=== PATIENT | female | born 2005 | race Two or more races ===

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

== ENCOUNTER 2024-01-28 19:27 | Emergency (ER) | payer MEDICAID ==
[~2024-01-28] VITALS: Ht 162.6 cm; Wt 57.0 kg
[~2024-01-28 19:27] MED LIST: ALBUAER3 IN; AMOX500C2 PO; BENZ200C64 PO; BENZLOZ2 MT; IBUP1TAB5 PO; PRED20TA2 PO
[2024-01-28 20:18] LABS: Urine Bacteria None Seen /hpf (None Seen)
[2024-01-28 20:58] LABS: Basophils # (auto) 0 10 ^3/uL (0-0.2); Basophils % (auto) 0.4 % (0.0-2.0); Eosinophils # (auto) 0.1 10 ^3/uL (0-0.8); Eosinophils % (auto) 0.9 % (0.0-7.0); Hemoglobin 14.8 g/dL (12.2-16.2); Lymphocytes # (auto) 3.3 10 ^3/uL (0.4-5.4); Lymphocytes % (auto) 34.7 % (10.0-50.0); Mean Corpuscular Hemoglobin 31.6 pg (28.0-32.0); Mean Corpuscular Hgb Conc. 35.2 g/dL (32.0-36.0); Mean Corpuscular Volume 89.6 fL (80.0-100.0); Monocytes # (auto) 0.9 10 ^3/uL (0-1.3); Monocytes % (auto) 9.5 % (0.0-12.0); Neutrophils # (auto) 5.1 10 ^3/uL (1.6-8.6); Neutrophils % (auto) 54.5 % (37.0-80.0); Nucleated Red Blood Cells % 0.1 %; Red Blood Cells 4.69 10^6/uL (4.0-5.20); Red Cell Distribution Width 14.5 % (11.8-14.3); White Blood Cell 9.4 10^3/uL (4.4-10.8)
[2024-01-28] MEDS: ACETAMINOPHEN 500 MG TAB PO ONE (21:04)
[2024-01-28 21:05] VITALS: BP 123/68; PULSE 62; RESP 18; TEMP 97.8; O2SAT 97
[2024-01-28 21:08] LABS: Chloride 106 mmol/L (98-107); Potassium 4.1 mmol/L (3.5-5.1); Sodium 137 mmol/L (136-145)
[2024-01-28 21:09] LABS: Anion Gap 6 (5-15); Calcium 9.8 mg/dL (8.7-10.4); Carbon Dioxide 25 mmol/L (20-30)
[2024-01-28 21:14] LABS: BUN/Creatinine Ratio 9.3 (10.0-20.0); Blood Urea Nitrogen 7 mg/dL (9-23); Glucose 92 mg/dL (74-106)
[2024-01-28 21:14] LABS: Urine Blood Negative /uL (Negative); Urine Clarity Clear (Clear); Urine Color Yellow (Yellow); Urine Mucus FEW (None Seen); Urine Protein, UAD TRACE (Negative); Urine Specific Gravity 1.028 (1.001-1.035); Urine Urobilinogen 2 mg/dL (Negative); Urine WBC 45 /hpf (0 - 5)
[2024-01-28] MEDS ORDERED: ZOFR4T PO (22:48)
[2024-01-28] MEDS ORDERED: ACET500T58 PO (22:48)
[2024-01-28] MEDS ORDERED: NITR-87 PO (22:48)
[2024-01-28] MEDS: NITROFURANTOIN 100 mg CAP PO ONE (23:02)
== END 2024-01-28 23:23 | disposition home or self-care (01) ==
LOC: ER 19:27
DX: O23.41 Unspecified infection of urinary tract in pregnancy, first trimester (principal); R10.2 Pelvic and perineal pain; J45.909 Unspecified asthma, uncomplicated; Z3A.01 Less than 8 weeks gestation of pregnancy; Z79.899 Other long term (current) drug therapy
CPT/HCPCS: 36415; 80048; 81001; 84702; 85025; 99283; J7030

== ENCOUNTER 2024-06-03 18:15 | Emergency (ER) | payer MEDICAID ==
[~2024-06-03] VITALS: Ht 162.6 cm; Wt 73.2 kg
[~2024-06-03 18:15] MED LIST changes: +ACET500T58 PO; +NITR-87 PO; +ZOFR4T PO
--- NOTE | 2024-06-03 18:28 | ED.PDOC ---
Altered Mental Status Chief Complaint: Nausea, vomiting, diarrhea Comments 18-year-old female with current approximate 22 week brought in by self complaining of nausea, vomiting and multiple episodes of diarrhea, onset this morning, associated with body aches. Patient states she took Zofran ODT, however immediately vomited, and is unable to keep any food or liquids down. She does note abdominal discomfort which she is unable to describe further. She denies fever, but does have some discomfort with urination. She denies vaginal bleeding or abnormal vaginal fluid discharge. Physical Exam Exam Comments Abdomen soft, supraumbilical and generalized lower abdominal tenderness to deep palpation. Nontender to percussion. No rebound or guarding. Attestation Rapid evaluation performed. Case briefly discussed with L&D. Patient will be transferred to L and D for evaluation. Once cleared, she may return to ER for continuation of workup. CELENA NICHOLE MD Jun 03, 2024 18:28
[2024-06-03 18:35] VITALS: BP 123/75; PULSE 117; RESP 16; O2SAT 98
--- NOTE | 2024-06-04 06:10 | DVHDS2 ---
Obstetrics Discharge Summary Obstetrics Discharge Summary Date of Admission: Jun 03, 2024 Date of Discharge: Jun 03, 2024 Reason For Admission: Observational/Evaluation ( Status), Others (Nausea vomiting diarrhea) Procedures: NST, Ultrasound Discharge Diagnosis: Others (Gastroenteritis maternal eval reassuring) Discharge Information: Activity (Pelvic rest until), Diet (Clears and crackers as tolerated advance), Medications (None), Instructions (Patient instructed if she does not clear up on the diarrhea within 3 days she should see her PCP and/or OB for C diff and WBC stool culture stool and O&P), Discharge to (Home), Discarge date (June 03, 2024) PARIS ROLLINS DO Jun 04, 2024 06:10
== END 2024-06-03 18:46 | disposition home or self-care (01) ==
LOC: ER 18:15
DX: O26.892 Other specified pregnancy related conditions, second trimester (principal); R10.30 Lower abdominal pain, unspecified; R19.7 Diarrhea, unspecified; Z3A.22 22 weeks gestation of pregnancy
CPT/HCPCS: 99281; J7030

== ENCOUNTER 2024-06-03 18:39 | Observation (INO) | payer MEDICAID ==
[~2024-06-03] VITALS: Ht 162.6 cm; Wt 70.8 kg
[2024-06-03] MEDS: LACTATED RINGER'S 1,000 ML IV ONE (19:47)
[2024-06-03] MEDS: ONDANSETRON HCL 4 MG/2 ML VIAL IV ONE (19:47)
[2024-06-03 20:20] LABS: COVID19 ANTIGEN SOFIA FIA NEGATIVE (NEGATIVE)
[2024-06-03 20:21] LABS: Rapid Influenza A Negative (Negative); Rapid Influenza B Negative (Negative)
== END 2024-06-03 20:49 | disposition home or self-care (01) ==
LOC: LDRP 18:39
PROVIDERS: ADMIT Obstetrics & Gynecology; ATTEND Obstetrics & Gynecology
DX: O21.0 Mild hyperemesis gravidarum (principal); Z20.822 Contact with and (suspected) exposure to COVID-19; O26.892 Other specified pregnancy related conditions, second trimester; R19.7 Diarrhea, unspecified; M79.10 Myalgia, unspecified site; Z3A.22 22 weeks gestation of pregnancy; Z87.891 Personal history of nicotine dependence; Z79.899 Other long term (current) drug therapy
CPT/HCPCS: 36415; 59025; 81002; 87426; 87804; 94760; 96361; 96374; G0378; J2405; 96360

== ENCOUNTER 2024-08-01 19:39 | Observation (INO) | payer MEDICAID ==
[~2024-08-01] VITALS: Ht 162.6 cm; Wt 72.6 kg
[2024-08-01 21:14] LABS: Urine Bacteria None Seen /hpf (None Seen)
--- NOTE | 2024-08-01 21:22 | DVH ---
OB ULTRASOUND, LIMITED CLINICAL INDICATION: Labor @ 32.3 weeks TECHNIQUE: Multiple grayscale ultrasound and M-mode images were obtained of the pelvis for evaluation of intrauterine . COMPARISON: None FINDINGS /IMPRESSION: Biophysical profile: 02/15 breathin movements: 2 tone: 2 Amniotic fluid: 2 RAGHU 25.16 cm Cervix is 3.3 cm and closed. heart rate: 139 beats per minute position is cephalic Placenta location: Fundal
[2024-08-01 21:26] LABS: Basophils # (auto) 0 10 ^3/uL (0-0.2); Basophils % (auto) 0.1 % (0.0-2.0); Eosinophils # (auto) 0 10 ^3/uL (0-0.8); Eosinophils % (auto) 0.3 % (0.0-7.0); Hematocrit 38.5 % (36.0-46.0); Hemoglobin 12.9 g/dL (12.2-16.2); Lymphocytes # (auto) 1.2 10 ^3/uL (0.4-5.4); Lymphocytes % (auto) 10.4 % (10.0-50.0); Mean Corpuscular Hemoglobin 30.7 pg (28.0-32.0); Mean Corpuscular Hgb Conc. 33.6 g/dL (32.0-36.0); Mean Corpuscular Volume 91.2 fL (80.0-100.0); Monocytes # (auto) 0.6 10 ^3/uL (0-1.3); Monocytes % (auto) 5.1 % (0.0-12.0); Neutrophils # (auto) 9.7 10 ^3/uL (1.6-8.6); Neutrophils % (auto) 84.1 % (37.0-80.0); Platelet Count (auto) 211 10^3/uL (140-450); Red Blood Cells 4.22 10^6/uL (4.0-5.20); Red Cell Distribution Width 13.3 % (11.8-14.3); White Blood Cell 11.5 10^3/uL (4.4-10.8)
[2024-08-01 21:36] LABS: Urine Blood Negative /uL (Negative); Urine Clarity Clear (Clear); Urine Color Light-Yellow (Yellow); Urine Mucus FEW (None Seen); Urine Protein, UAD Negative (Negative); Urine Specific Gravity 1.019 (1.001-1.035); Urine Squamous Epithelial Cell FEW /hpf (<5); Urine Urobilinogen Normal (Negative); Urine WBC 2 /HPF (0-5)
[2024-08-01 21:43] LABS: Protein, Urine 20.7 mg/dL (1-14)
[2024-08-01 21:46] LABS: Creatinine, Urine 89.04 mg/dL (30.0-125.0); Urine Protein/Creatinine Ratio 0.23
[2024-08-01 21:47] LABS: INR 0.92 (0.9-1.15); Partial Thromboplastin Time 28.2 SEC (24.5-34.5); Prothrombin Time 9.8 sec (9.3-11.8)
[2024-08-01 21:49] LABS: Alanine Aminotransferase 20 U/L (7-40); Albumin 3.9 g/dL (3.2-4.8); Anion Gap 8 (5-15); Aspartate Aminotransferase 22 U/L (13-40); Bilirubin, Total 0.7 mg/dL (0.2-1.0); Calcium 10.1 mg/dL (8.7-10.4); Carbon Dioxide 23 mmol/L (20-31); Chloride 106 mmol/L (98-107); Glucose 74 mg/dL (74-106); Potassium 3.8 mmol/L (3.5-5.1); Sodium 137 mmol/L (136-145); Total Protein 6.5 g/dL (5.7-8.2); Uric Acid 4.1 mg/dL (3.1-7.8)
[2024-08-01 21:54] LABS: Alkaline Phosphatase 177 U/L (46-116); Blood Urea Nitrogen 6 mg/dL (9-23)
[2024-08-01 21:54] LABS: Amphetamine Screen, Urine Neg (NEGATIVE); Barbiturate Scree,Urine Neg (NEGATIVE); Benzodiazephine Screen, Urine Neg (NEGATIVE); Cannabinoid Screen, Urine Neg (NEGATIVE); Cocaine Screen, Urine Neg (NEGATIVE); Opiate Scree,Urine Neg (NEGATIVE); Phencyclidine Screen, Urine Neg (NEGATIVE)
[2024-08-01] MEDS: ONDANSETRON HCL 4 MG/2 ML VIAL IV ONE (22:03)
--- NOTE | 2024-08-01 22:38 | DVHDS2 ---
Physician Discharge Progress N Final Diagnosis: polyhydramnios preeclampsia symptoms Operations or Procedures: Operations or Procedures S: 19yo IUP@32.3wks presents to OB triage with c/o uterine cramps, dizziness, nausea, headache now and earlier had blurry vision. PNC with Dr. De La Garza, uncomplicated. Denies LOF/VB/RUQ pain. Endorses +FM. O: VSS, normotensive NST reactive TOCO: no UCs noted Tylenol 650mg PO given 1L LR IV bolus and zofran 4mg IVP given, Pt denies dizziness and nausea after IV. Laboratory Tests Test 08/01/24 20:30 08/01/24 20:52 Range/Units Urine Color Light-yellow Yellow Urine Clarity Clear Clear Urine pH 7.0 5.0-9.0 Urine Specific Pax 1.019 1.001-1.035 Urine Protein Negative Negative Urine Ketones Trace Negative Urine Blood Negative Negative /uL Urine Nitrite Negative Negative Urine Bilirubin Negative Negative Urine Urobilinogen Normal Negative mg/dL Urine Leukocyte Esterase Negative Negative /uL Urine RBC <1 0 - 4 /hpf Urine Microscopic WBC 2 0-5 /HPF Urine Squamous Epithelial Cells Few <5 /hpf Urine Bacteria None seen None Seen /hpf Urine Mucus Few None Seen Urine Creatinine 89.04 30.0-125.0 mg/dL Urine Protein/Creatinine Ratio 0.23 Urine Glucose Normal Normal mg/dL Urine Total Protein 20.7 H 1-14 mg/dL Urine Opiates Screen Neg NEGATIVE Urine Fentanyl Screen Neg NEGATIVE Urine Barbiturates Screen Neg NEGATIVE Urine Phencyclidine Screen Neg NEGATIVE Urine Amphetamines Screen Neg NEGATIVE Urine Benzodiazepines Screen Neg NEGATIVE Urine Cocaine Screen Neg NEGATIVE Urine Cannabinoids Screen Neg NEGATIVE White Blood Count 11.5 H 4.4-10.8 10^3/uL Red Blood Count 4.22 4.0-5.20 10^6/uL Hemoglobin 12.9 12.2-16.2 g/dL Hematocrit 38.5 36.0-46.0 % Mean Corpuscular Volume 91.2 80.0-100.0 fL Mean Corpuscular Hemoglobin 30.7 28.0-32.0 pg Mean Corpuscular Hemoglobin Concent 33.6 32.0-36.0 g/dL Red Cell Distribution Width 13.3 11.8-14.3 % Platelet Count 211 140-450 10^3/uL Mean Platelet Volume 9.6 6.9-10.8 fL Neutrophils (%) (Auto) 84.1 H 37.0-80.0 % Lymphocytes (%) (Auto) 10.4 10.0-50.0 % Monocytes (%) (Auto) 5.1 0.0-12.0 % Eosinophils (%) (Auto) 0.3 0.0-7.0 % Basophils (%) (Auto) 0.1 0.0-2.0 % Neutrophils # (Auto) 9.7 H 1.6-8.6 10 ^3/uL Lymphocytes # (Auto) 1.2 0.4-5.4 10 ^3/uL Monocytes # (Auto) 0.6 0-1.3 10 ^3/uL Eosinophils # (Auto) 0 0-0.8 10 ^3/uL Basophils # (Auto) 0 0-0.2 10 ^3/uL Nucleated Red Blood Cells 0.0 % Prothrombin Time 9.8 9.3-11.8 sec Prothrombin Time INR 0.92 0.9-1.15 Activated Partial Thromboplast Time 28.2 24.5-34.5 SEC Sodium Level 137 136-145 mmol/L Potassium Level 3.8 3.5-5.1 mmol/L Chloride Level 106 98-107 mmol/L Carbon Dioxide Level 23 20-31 mmol/L Anion Gap 8 5-15 Blood Urea Nitrogen 6 L 9-23 mg/dL Creatinine 0.67 0.550-1.02 mg/dL Glomerular Filtration Rate Calc 128 >90 mL/min BUN/Creatinine Ratio 9.0 L 10.0-20.0 Serum Glucose 74 74-106 mg/dL Uric Acid 4.1 3.1-7.8 mg/dL Calcium Level 10.1 8.7-10.4 mg/dL Total Bilirubin 0.7 0.2-1.0 mg/dL Aspartate Amino Transferase (AST) 22 13-40 U/L Alanine Aminotransferase (ALT) 20 7-40 U/L Alkaline Phosphatase 177 H 46-116 U/L Total Protein 6.5 5.7-8.2 g/dL Albumin 3.9 3.2-4.8 g/dL A: 19yo IUP@32.3wks Polyhydramnios Preeclampsia symptoms P: D/C home PO hydrate regularly kick counts and Preeclampsia warning signs reviewed. PTL precautions given and when to return to the hospital. Dr. Thomas consulted, agrees with POC. Other Interventions Other Interventions [address] [address] Ph: [phone] DIAGNOSTIC IMAGING Diagnostic Imaging Report : [id number] Signed PATIENT: KELSI PHELPS ACCT: [id number] UNIT: [id number] : 2005 LOC: [facility] ROOM / BED: TRIAGE2 / A AGE / SEX: 19 / F ADM STATUS: ADM IN SERVICE 41 ORDERING PHYSICIAN: KENDRICK PRADHAN CNM PROCEDURE(s): BPP - BIOPHYSICAL PROFILE REASON: Labor @ 32.3 weeks ORDER NUMBER(s): [id number], ACCESSION NUMBER(s): [id number] OB ULTRASOUND, LIMITED CLINICAL INDICATION: Labor @ 32.3 weeks TECHNIQUE: Multiple grayscale ultrasound and M-mode images were obtained of the pelvis for evaluation of intrauterine . COMPARISON: None FINDINGS /IMPRESSION: Biophysical profile: 02/15 breathin movements: 2 tone: 2 Amniotic fluid: 2 RAGHU 25.16 cm Cervix is 3.3 cm and closed. heart rate: 139 beats per minute position is cephalic Placenta location: Fundal ATED BY: SINGH SCHMIDT MD DICTATED DATE/TIME: 08/01/242119 SIGNED BY: SINGH SCHMIDT MD SIGNED DATE/TIME: 08/01/242119 CC: Condition on Discharge: Stable Disposition: Home Discharge Instructions: Diet: Regular Activity: No Restrictions, As Tolerated Medications: see med list Follow Up Care: Specialist: f/u on tuesday08/06/24 for NST/BPP Discharge Statement: "Patient was advised to return to the ER or call 911 if any headaches, dizziness, shortness of breath, chest pain, abdominal pain, bleeding, fevers, or worsening of medical condition. Patient was counseled about treatment plan, medications, possible side effects, patientverbalized understanding. All questions were answered to the best of my ability. This discharge took greater then 30 minutes in planning, reviewing documentation, counseling the patient, and discussing with other team members." KENDRICK PRADHAN CNM Aug 01, 2024 22:38
[2024-08-01] MEDS: ACETAMINOPHEN 325 MG TAB PO ONE (22:44)
[2024-08-01] MEDS: LACTATED RINGER'S 1,000 ML IV ONE (22:45)
== END 2024-08-01 23:17 | disposition home or self-care (01) ==
LOC: LDRP 19:39
PROVIDERS: ADMIT Obstetrics & Gynecology; ATTEND Obstetrics & Gynecology
DX: O40.3XX0 Polyhydramnios, third trimester, not applicable or unspecified (principal); O14.93 Unspecified pre-eclampsia, third trimester; O26.893 Other specified pregnancy related conditions, third trimester; R42 Dizziness and giddiness; R51.9 Headache, unspecified; H53.8 Other visual disturbances; Z3A.32 32 weeks gestation of pregnancy; Z98.890 Other specified postprocedural states; Z79.899 Other long term (current) drug therapy
CPT/HCPCS: 36415; 59025; 76818; 80053; 80307; 81001; 81002; 82570; 84156; 84550; 85025; 85610; 85730; 94760; 96361; 96374; G0378; J2405; 96360; 96366

== ENCOUNTER 2024-08-06 10:15 | Observation (INO) | payer MEDICAID ==
--- NOTE | 2024-08-06 11:16 | DVH ---
CLINICAL HISTORY: Polyhydramnios, possible Preeclampsia COMPARISON: US BIOPHYSICAL PROFILE on DOS: 08/01/24 TECHNIQUE: biophysical profile was performed. Transabdominal sonographic images of the fetus we re obtained. FINDINGS: The fetus is in cephalic position. heart rate measures 133 BPM. Amniotic fluid index measures 18.6 cm. The placenta is posterior/fundal in position. BPP profile is an overall score of 8/8, with 2/2 points for breathing, with at least one episode of breathing over a 30 second duration during a 30 minute observation, 2/2 points for m ovements, with 3 or more discrete body or limb movements, 2/2 points for tone, with one or more episodes of extremity extension with return to flexion, or opening and closing of hand, and 2/ 2 points for amniotic fluid, with at least 1 pocket of amniotic fluid that measures 2 cm in 2 perpend icular planes. IMPRESSION: 1. BPP score of 8/8. 2. Amniotic fluid index of 18.6.
[2024-08-06] MEDS ORDERED: PREN-96 PO (11:24)
--- NOTE | 2024-08-07 15:05 | DVHDS2 ---
Physician Discharge Progress N Final Diagnosis: polyhydramnia Operations or Procedures: Operations or Procedures nst,sono Condition on Discharge: Good Disposition: Home Discharge Instructions: Diet: Regular Activity: No Restrictions, As Tolerated Medications: na Follow Up Care: Specialist: 3d Discharge Statement: "Patient was advised to return to the ER or call 911 if any headaches, dizziness, shortness of breath, chest pain, abdominal pain, bleeding, fevers, or worsening of medical condition. Patient was counseled about treatment plan, medications, possible side effects, patientverbalized understanding. All questions were answered to the best of my ability. This discharge took greater then 30 minutes in planning, reviewing documentation, counseling the patient, and discussing with other team members." LEONARDO SWEENEY DO Aug 07, 2024 15:05
== END 2024-08-06 12:01 | disposition home or self-care (01) ==
LOC: LDRP 10:15 → UNDOADMOB 10:15 → LDRP 10:31 → UNDODISOB 12:01
PROVIDERS: ADMIT Obstetrics & Gynecology; ATTEND Obstetrics & Gynecology
DX: O40.3XX0 Polyhydramnios, third trimester, not applicable or unspecified (principal); Z98.890 Other specified postprocedural states; Z79.899 Other long term (current) drug therapy; Z3A.33 33 weeks gestation of pregnancy
CPT/HCPCS: 59025; 76818; 81002; 94760; G0378

== ENCOUNTER 2024-08-13 06:50 | Observation (INO) | payer MEDICAID ==
[~2024-08-13 06:50] MED LIST changes: -ACET500T58 PO; -AMOX500C2 PO; -BENZ200C64 PO; -BENZLOZ2 MT; -IBUP1TAB5 PO; -NITR-87 PO; -PRED20TA2 PO; +PREN-96 PO; -ZOFR4T PO
--- NOTE | 2024-08-13 10:18 | DVH ---
CLINICAL HISTORY: limited care. COMPARISON: US BIOPHYSICAL PROFILE on DOS: 08/06/24, US BIOPHYSICAL PROFILE on DOS: 08/01/24 TECHNIQUE: biophysical profile was performed. Transabdominal sonographic images of the fetus we re obtained. FINDINGS: The fetus is in cephalic position. heart rate measures 146 BPM. Amniotic fluid index measures 17.6 cm. The placenta is posterior in position. BPP profile is an overall score of 8/8, with 2/2 points for breathing, with at least one episode of breathing over a 30 second duration during a 30 minute observation, 2/2 points for m ovements, with 3 or more discrete body or limb movements, 2/2 points for tone, with one or more episodes of extremity extension with return to flexion, or opening and closing of hand, and 2/ 2 points for amniotic fluid, with at least 1 pocket of amniotic fluid that measures 2 cm in 2 perpend icular planes. IMPRESSION: BPP score of 8/8.
--- NOTE | 2024-08-13 21:19 | DVHDS2 ---
Physician Discharge Progress N Final Diagnosis: Poor care Secondary Diagnosis: Encounter for surveillance Operations or Procedures: Operations or Procedures NST/BPP/ARGHU all WNL Condition on Discharge: Stable Disposition: Home Discharge Instructions: Diet: Regular Activity: No Restrictions, As Tolerated Follow Up/Referral: As scheduled Medications: N/A Follow Up Care: Discharge Statement: "Patient was advised to return to the ER or call 911 if any headaches, d izziness, shortness of breath, chest pain, abdominal pain, bleeding, fevers, or worsening of medical condition. Patient was counseled about treatment plan, medications, possible side effects, patientverbalized understanding. All questions were answered to the best of my ability. This discharge took greater then 30 minutes in planning, reviewing documentation, counseling the patient, and discussing with other team members." JOEY FARRELL DO Aug 13, 2024 21:19
== END 2024-08-13 10:47 | disposition home or self-care (01) ==
LOC: LDRP 09:10
PROVIDERS: ADMIT Obstetrics & Gynecology; ATTEND Obstetrics & Gynecology
DX: O13.3 Gestational [pregnancy-induced] hypertension without significant proteinuria, third trimester (principal); O26.893 Other specified pregnancy related conditions, third trimester; R51.9 Headache, unspecified; R11.0 Nausea; Z98.890 Other specified postprocedural states; Z79.899 Other long term (current) drug therapy; Z3A.34 34 weeks gestation of pregnancy
CPT/HCPCS: 59025; 76818; 81002; 94760; G0378

== ENCOUNTER → 2024-08-21 | Outpatient (CLI) | payer MEDICAID ==
[2024-08-21 11:16] LABS: Basophils # (auto) 0 10 ^3/uL (0-0.2); Basophils % (auto) 0.3 % (0.0-2.0); Eosinophils # (auto) 0.1 10 ^3/uL (0-0.8); Eosinophils % (auto) 0.8 % (0.0-7.0); Hematocrit 38.4 % (36.0-46.0); Hemoglobin 13.3 g/dL (12.2-16.2); Lymphocytes % (auto) 25.6 % (10.0-50.0); Mean Corpuscular Hemoglobin 31.3 pg (28.0-32.0); Mean Corpuscular Hgb Conc. 34.6 g/dL (32.0-36.0); Mean Corpuscular Volume 90.6 fL (80.0-100.0); Monocytes # (auto) 0.6 10 ^3/uL (0-1.3); Monocytes % (auto) 7.2 % (0.0-12.0); Neutrophils # (auto) 5.1 10 ^3/uL (1.6-8.6); Neutrophils % (auto) 66.1 % (37.0-80.0); Nucleated Red Blood Cells % 0.2 %; Platelet Count (auto) 185 10^3/uL (140-450); Red Blood Cells 4.24 10^6/uL (4.0-5.20); Red Cell Distribution Width 13.7 % (11.8-14.3); White Blood Cell 7.7 10^3/uL (4.4-10.8)
[2024-08-21 11:42] LABS: Alanine Aminotransferase 13 U/L (7-40); Anion Gap 9 (5-15); Calcium 10.3 mg/dL (8.7-10.4); Carbon Dioxide 23 mmol/L (20-31); Chloride 106 mmol/L (98-107); Sodium 138 mmol/L (136-145)
[2024-08-21 11:44] LABS: Aspartate Aminotransferase 16 U/L (13-40)
[2024-08-21 11:45] LABS: BUN/Creatinine Ratio 9.4 (10.0-20.0); Glucose 84 mg/dL (74-106)
[2024-08-21 11:46] LABS: Albumin 4.1 g/dL (3.2-4.8)
[2024-08-21 11:47] LABS: Bilirubin, Total 0.6 mg/dL (0.2-1.0); Total Protein 6.5 g/dL (5.7-8.2)
[2024-08-21 11:58] LABS: Blood Urea Nitrogen 6 mg/dL (9-23)
[2024-08-21 12:41] LABS: Alkaline Phosphatase 192 U/L (46-116)
[2024-08-23 06:06] LABS: Chlamydia Trachomatis, NAA Negative (Negative); Neisseria gonorrhoeae, NAA Negative (Negative)
== END | disposition home or self-care (01) ==
LOC: LAB 10:09
PROVIDERS: ATTEND Obstetrics & Gynecology
DX: Z34.00 Encounter for supervision of normal first pregnancy, unspecified trimester (principal); Z3A.00 Weeks of gestation of pregnancy not specified
CPT/HCPCS: 36415; 80053; 82951; 83036; 85025; 86850; 86900; 86901

== ENCOUNTER 2024-09-05 21:31 | Observation (INO) | payer MEDICAID ==
[2024-09-05 22:25] LABS: Urine Bacteria None Seen /hpf (None Seen)
[2024-09-05 22:39] LABS: Urine Blood TRACE /uL (Negative); Urine Clarity Clear (Clear); Urine Color Light-Yellow (Yellow); Urine Protein, UAD Negative (Negative); Urine Specific Gravity 1.015 (1.001-1.035); Urine Squamous Epithelial Cell FEW /hpf (<5); Urine Urobilinogen Normal (Negative); Urine WBC 20 /HPF (0-5); Urine pH 6.5 (5.0-9.0)
[2024-09-05] MEDS ORDERED: CEPH250C PO (23:00)
--- NOTE | 2024-09-05 23:16 | DVH ---
BIOPHYSICAL PROFILE HISTORY: DFM/PTL, check cervical length Comparison Study: August 13, 2024 TECHNIQUE: Multiple real-time grayscale sonographic images through the gravid uterus of the fetus wi th duplex Doppler color flow and M-mode spectral analysis FINDINGS: BIOPHYSICAL PROFILE: breathing score: 2 movement score: 2 tone score: 2 Quantitative RAGHU score: 2 (RAGHU: 20.1 Cm.) Total score: 8 The cervix measures 3.39 cm in length and is closed at this time. heart rate measures 134 beats per minute. Single live fetus in cephalic position. Stable placenta without previa or abruption IMPRESSION: 1. Biophysical profile score: 8 (normal) 2. The cervix measures 3.39 cm in length. 3. No abnormal findings identified.
[2024-09-05] MEDS ORDERED: MICOCRE VA (23:37)
--- NOTE | 2024-09-06 00:24 | DVHDS2 ---
Physician Discharge Progress N Final Diagnosis: UTI vaginal yeast infection Operations or Procedures: Operations or Procedures S: 19yo IUP@36.1wks presents to OB triage with c/o DFM, red vaginal bleeding after voiding, right flank pain, low back pain, lower abdominal cramping q30-60 min lasting 5 min. Final RYAN is 10/02/24 based on 8 wk sono per pt. Pt has not hydrated well today, c/o urinary frequency. PNC with Dr. De La Garza, denies OB complications, next appt tmrw on 09/07/24. Denies having sex in the past 48 hours. Denies LOF/UCs/SOTO/vision changes/RUQ pain. O: VSS NST reactive TOCO: irregular UCs PO hydration CVA tenderness on right side SVE by RN: 0/0/-4, white cottage cheese d/c noted, no VB noted Laboratory Tests Test 09/05/24 22:14 Range/Units Urine Color Light-yellow Yellow Urine Clarity Clear Clear Urine pH 6.5 5.0-9.0 Urine Specific Ray 1.015 1.001-1.035 Urine Protein Negative Negative Urine Ketones Negative Negative Urine Blood Trace H Negative /uL Urine Nitrite Negative Negative Urine Bilirubin Negative Negative Urine Urobilinogen Normal Negative mg/dL Urine Leukocyte Esterase 2+ Negative /uL Urine RBC 1 0 - 4 /hpf Urine Microscopic WBC 20 H 0-5 /HPF Urine Squamous Epithelial Cells Few <5 /hpf Urine Bacteria None seen None Seen /hpf Urine Glucose Normal Normal mg/dL A: 19yo IUP@36.1wks UTI Vaginal yeast infection P: D/C home PO hydrate more at home Rx sent to pharmacy FKC/PTL/PreE precautions reviewed Dr. Thomas consulted, agrees with POC. Other Interventions Other Interventions [address] [address] Ph: [phone] DIAGNOSTIC IMAGING Diagnostic Imaging Report : [id number] Signed PATIENT: KELSI PHELPS ACCT: [id number] UNIT: [id number] : 2005 LOC: [facility] ROOM / BED: TRIAGE1 / A AGE / SEX: 19 / F ADM STATUS: ADM IN SERVICE 13 ORDERING PHYSICIAN: KENDRICK PRADHAN CNM PROCEDURE(s): BPP - BIOPHYSICAL PROFILE REASON: DFM/PTL, check cervical length ORDER NUMBER(s): [id number], ACCESSION NUMBER(s): [id number] BIOPHYSICAL PROFILE HISTORY: DFM/PTL, check cervical length Comparison Study: August 13, 2024 TECHNIQUE: Multiple real-time grayscale sonographic images through the gravid uterus of the fetus with duplex Doppler color flow and M-mode spectral analysis FINDINGS: BIOPHYSICAL PROFILE: breathing score: 2 movement score: 2 tone score: 2 Quantitative RAGHU score: 2 (RAGHU: 20.1 Cm.) Total score: 8 The cervix measures 3.39 cm in length and is closed at this time. heart rate measures 134 beats per minute. Single live fetus in cephalic position. Stable placenta without previa or abruption IMPRESSION: 1. Biophysical profile score: 8 (normal) 2. The cervix measures 3.39 cm in length. 3. No abnormal findings identified. ATED BY: TEJA WYLIE MD DICTATED DATE/TIME: 09/05/242312 SIGNED BY: TEJA WYLIE MD SIGNED DATE/TIME: 09/05/242312 CC: Condition on Discharge: Stable Disposition: Home Discharge Instructions: Diet: Regular Activity: No Restrictions, As Tolerated Medications: see med list Follow Up Care: Specialist: f/u with Dr. Desai as scheduled Discharge Statement: "Patient was advised to return to the ER or call 911 if any headaches, dizziness, shortness of breath, chest pain, abdominal pain, bleeding, fevers, or worsening of medical condition. Patient was counseled about treatment plan, medications, possible side effects, patientverbalized understanding. All questions were answered to the best of my ability. This discharge took greater then 30 minutes in planning, reviewing documentation, counseling the patient, and discussing with other team members." Visit Coding OBGYN Date of Service: Sep 06, 2024 Billing Provider: KENDRICK PRADHAN CNM MANAGER QUALITY IMPROVEMENT Common Visit Codes: [id number] OBS CARE (MOD) MANAGER QUALITY IMPROVEMENT Procedure Codes: 33421-28- NON-STRESS TEST KENDRICK PRADHAN CNM Sep 06, 2024 00:24
== END 2024-09-06 00:09 | disposition home or self-care (01) ==
LOC: LDRP 21:31
PROVIDERS: ADMIT Obstetrics & Gynecology; ATTEND Obstetrics & Gynecology
DX: O23.43 Unspecified infection of urinary tract in pregnancy, third trimester (principal); N39.0 Urinary tract infection, site not specified; O46.93 Antepartum hemorrhage, unspecified, third trimester; N93.9 Abnormal uterine and vaginal bleeding, unspecified; B37.31 Acute candidiasis of vulva and vagina; O36.8130 Decreased fetal movements, third trimester, not applicable or unspecified; O99.891 Other specified diseases and conditions complicating pregnancy; M54.50 Low back pain, unspecified; O26.893 Other specified pregnancy related conditions, third trimester; R10.30 Lower abdominal pain, unspecified; Z79.899 Other long term (current) drug therapy; Z3A.36 36 weeks gestation of pregnancy
CPT/HCPCS: 59025; 76819; 81001; 81002; G0378; 76818

== ENCOUNTER 2024-09-20 00:01 | Observation (INO) | payer MEDICAID ==
[~2024-09-20] VITALS: Ht 162.6 cm; Wt 83.0 kg
[2024-09-20 01:02] LABS: Fern Testing Negative
--- NOTE | 2024-09-20 01:20 | DVH ---
LIMITED SURVEY CLINICAL HISTORY: Leaking of fluid. COMPARISON: U/S biophysical profile 09/05/2024. TECHNIQUE: Real-time grayscale, color flow and M-mode imaging of the gravid uterus is performed. FINDINGS: Single living intrauterine gestation. Cephalic presentation. heart rate 132 beats per minute. Placenta is posterior. The cervix is not clearly visualized, however, there is no definite evidence o f previa or abruption at this time. Amniotic fluid index 18.6 cm. Previously, on 09/05/2024, the amniotic fluid index was 20.2 cm. IMPRESSION: Single living intrauterine gestation as above. HS:Y
--- NOTE | 2024-09-20 06:22 | DVHDS2 ---
Physician Discharge Progress N Final Diagnosis: Term IUP, SROM ruled out Operations or Procedures: Operations or Procedures NST OB U/S RAGHU Fern/Amnisure tests both negative. NOT IN LABOR , NO SROM Condition on Discharge: Stable Disposition: Home Discharge Instructions: Diet: Regular Activity: No Restrictions, As Tolerated Follow Up/Referral: as scheduled Medications: No new meds Follow Up Care: Discharge Statement: "Patient was advised to return to the ER or call 911 if any headaches, dizziness, shortness of breath, chest pain, abdominal pain, bleeding, fevers, or worsening of medical condition. Patient was counseled about treatment plan, medications, possible side effects, patientverbalized understanding. All questions were answered to the best of my ability. This discharge took greater then 30 minutes in planning, reviewing documentation, counseling the patient, and discussing with other team members." Visit Coding OBGYN Date of Service: Sep 20, 2024 Billing Provider: JOEY FARRELL DO FIREARMS ASSEMBLY SUPERVISOR Common Visit Codes: 42788-YTY/OBS SAME DATE (MOD) FIREARMS ASSEMBLY SUPERVISOR Procedure Codes: 49697-93- NON-STRESS TEST JOEY FARRELL DO Sep 20, 2024 06:22
== END 2024-09-20 01:34 | disposition home or self-care (01) ==
LOC: LDRP 00:01
PROVIDERS: ADMIT Obstetrics & Gynecology; ATTEND Obstetrics & Gynecology
DX: O42.913 Preterm premature rupture of membranes, unspecified as to length of time between rupture and onset of labor, third trimester (principal); Z98.890 Other specified postprocedural states; Z79.899 Other long term (current) drug therapy; Z3A.38 38 weeks gestation of pregnancy
CPT/HCPCS: 59025; 76815; 81002; 84112; 94760; G0378; Q0114

== ENCOUNTER → 2024-09-20 | Outpatient (CLI) | payer MEDICAID ==
[~2024-09-20] MED LIST changes: +CEPH250C PO; +MICOCRE VA
[2024-09-20 10:17] LABS: Basophils # (auto) 0 10 ^3/uL (0-0.2); Basophils % (auto) 0.5 % (0.0-2.0); Eosinophils # (auto) 0.1 10 ^3/uL (0-0.8); Eosinophils % (auto) 1.6 % (0.0-7.0); Hematocrit 38.8 % (36.0-46.0); Hemoglobin 13.2 g/dL (12.2-16.2); Lymphocytes # (auto) 2.5 10 ^3/uL (0.4-5.4); Lymphocytes % (auto) 35.9 % (10.0-50.0); Mean Corpuscular Hemoglobin 31.1 pg (28.0-32.0); Mean Corpuscular Hgb Conc. 34.1 g/dL (32.0-36.0); Monocytes # (auto) 0.6 10 ^3/uL (0-1.3); Monocytes % (auto) 8.2 % (0.0-12.0); Neutrophils # (auto) 3.8 10 ^3/uL (1.6-8.6); Neutrophils % (auto) 53.8 % (37.0-80.0); Platelet Count (auto) 164 10^3/uL (140-450); Red Blood Cells 4.26 10^6/uL (4.0-5.20); Red Cell Distribution Width 14.3 % (11.8-14.3); White Blood Cell 7.1 10^3/uL (4.4-10.8)
[2024-09-20 10:33] LABS: Anion Gap 9 (5-15); Aspartate Aminotransferase 20 U/L (13-40); BUN/Creatinine Ratio 8.3 (10.0-20.0); Bilirubin, Total 0.6 mg/dL (0.2-1.0); Calcium 10.1 mg/dL (8.7-10.4); Carbon Dioxide 22 mmol/L (20-31); Chloride 106 mmol/L (98-107); Glucose 78 mg/dL (74-106); Potassium 4.4 mmol/L (3.5-5.1); Sodium 137 mmol/L (136-145); Total Protein 6.6 g/dL (5.7-8.2)
[2024-09-20 10:44] LABS: Alanine Aminotransferase 9 U/L (7-40); Alkaline Phosphatase 285 U/L (46-116); Blood Urea Nitrogen 8 mg/dL (9-23)
== END | disposition home or self-care (01) ==
LOC: LAB 09:45
DX: O26.642 Intrahepatic cholestasis of pregnancy, second trimester (principal); Z3A.22 22 weeks gestation of pregnancy
CPT/HCPCS: 36415; 80053; 85025

== ENCOUNTER 2024-09-21 22:08 | Inpatient (IN) | payer MEDICAID ==
[~2024-09-21] VITALS: Ht 162.6 cm; Wt 85.7 kg
[2024-09-21] MEDS ORDERED: NALBUPHINE HCL 10 MG/1ml INJECTION IM PRN (22:30)
[2024-09-21] MEDS ORDERED: LIDOCAINE 2%HCL (LOCAL ANESTH.) INJ 20ML MDV IJ PRN (22:30)
[2024-09-21] MEDS ORDERED: NALBUPHINE HCL 10 MG/1ml INJECTION IV PRN (22:30)
[2024-09-21] MEDS: URSODIOL 300 MG CAP ONE (23:00)
[2024-09-21 23:07] LABS: Basophils # (auto) 0 10 ^3/uL (0-0.2); Basophils % (auto) 0.4 % (0.0-2.0); Eosinophils # (auto) 0.1 10 ^3/uL (0-0.8); Hematocrit 37.4 % (36.0-46.0); Hemoglobin 13.1 g/dL (12.2-16.2); Lymphocytes # (auto) 2.6 10 ^3/uL (0.4-5.4); Lymphocytes % (auto) 31.8 % (10.0-50.0); Mean Corpuscular Hemoglobin 31.4 pg (28.0-32.0); Mean Corpuscular Hgb Conc. 35.1 g/dL (32.0-36.0); Mean Corpuscular Volume 89.3 fL (80.0-100.0); Monocytes # (auto) 0.5 10 ^3/uL (0-1.3); Monocytes % (auto) 5.9 % (0.0-12.0); Neutrophils % (auto) 60.9 % (37.0-80.0); Platelet Count (auto) 164 10^3/uL (140-450); Red Blood Cells 4.18 10^6/uL (4.0-5.20); White Blood Cell 8.2 10^3/uL (4.4-10.8)
[2024-09-21 23:23] LABS: INR 0.92 (0.9-1.15); Partial Thromboplastin Time 28.2 SEC (24.5-34.5); Prothrombin Time 9.8 sec (9.3-11.8)
[2024-09-21 23:27] LABS: Urine Bacteria FEW /hpf (None Seen); Urine Blood Negative /uL (Negative); Urine Clarity Turbid (Clear); Urine Color Light-Yellow (Yellow); Urine Protein, UAD Negative (Negative); Urine Specific Gravity 1.012 (1.001-1.035); Urine Squamous Epithelial Cell MOD /hpf (<5); Urine Urobilinogen Normal (Negative); Urine WBC 7 /HPF (0-5); Urine pH 5.5 (5.0-9.0)
[2024-09-21 23:29] LABS: Alanine Aminotransferase 10 U/L (7-40); Albumin 4.2 g/dL (3.2-4.8); Anion Gap 11 (5-15); Aspartate Aminotransferase 22 U/L (13-40); BUN/Creatinine Ratio 10.9 (10.0-20.0); Blood Urea Nitrogen 11 mg/dL (9-23); Carbon Dioxide 21 mmol/L (20-31); Chloride 106 mmol/L (98-107); Potassium 3.9 mmol/L (3.5-5.1); Sodium 138 mmol/L (136-145); Total Protein 6.9 g/dL (5.7-8.2)
[2024-09-21 23:30] LABS: Alkaline Phosphatase 284 U/L (46-116); Bilirubin, Total 0.7 mg/dL (0.2-1.0); Glucose 66 mg/dL (74-106)
--- NOTE | 2024-09-21 23:41 | DVHHP2 ---
OB CC & HPI Date Date of Admission: Sep 21, 2024 Patient Identification: : 1 Para: 0 EDC: Oct 02, 2024 EGA: 38.3wks Chief Complaints: Reason for admission: induction of labor (cholestasis) Admission Nurse Assessment Rev: Yes History of Present Complaints 19yo IUP@38.3wks presents to L&D for IOL for Cholestasis Denies UCs/SOTO/vision changes/RUQ pain/VB/LOF. Endorses +FM Pt prescribed Ursodiol yesterday by Dr Thomas, but pt did not fill prescription. Pt complaining of itching on palms, soles, shins, thighs, and abdomen. PNC: Routine PNC @ [facility] beginning at 25wks. Care transferred from Dr. Leonardo. no records available to review from [facility]. PNC complicated by Cholestasis. GTT wnl, GBS positive. Pt states EDC 10/02/24 by first sono at 6wks, LMP unknown due to irregularity. Past Medical History Cardiac: No pertinent Hx Pulmonary: Asthma (last time she used her inhaler was 3 months ago) Central Nervous System: No pertinent Hx GI: No pertinent Hx Hemotology/Oncology: No pertinent Hx Hepatobiliary: No pertinent Hx Psychiatric: No pertinent Hx Musculoskeletal: No pertinent Hx Rheumotologic: No pertinent Hx Infectious Disease: No peritnent Hx ENT: No pertinent Hx Renal/: No pertinent Hx Endocrine: No pertinent Hx Dermatology: No pertinent Hx Past Surgical History: No pertinent Hx OB History OB History Care: Good Care Ultrasounds: Normal mid trimester US Obstetrical Complications: Other (Cholestasis) Medical Complications: None Allergies: Coded Allergies: NO KNOWN ALLERGIES (Unverified , 11/27/23) Allergies NKA Home Meds Active Scripts Miconazole Nitrate (Miconazole 7) 2 % Cre, 2 % VA HS for 7 Days, #7 CRE Prov:KALAYDJIAN,AZADUHI CNM 09/05/24 Cephalexin (KEFLEX CAPSULE) 250 Mg Cp, 1 CAP PO BID for 7 Days, #14 CAP Prov:KALAYDJIAN,AZADUHI CNM 09/05/24 Albuterol Sulfate (VENTOLIN MDI) 90 Mcg Ih, 1 PUFF IN Q4HPRN PRN, #1 INH As needed for cough nasal congestion shortness of breath or wheezing Prov:PATRICIA AWAD Q AIR CAR[employer] SPECIALIST SUPERVISOR 11/27/23 Reported Medications Vit W/ Ferrous Fumara ( One Daily) Daily Tab, 1 TAB PO DAILY, #90 TAB 3 Refills 08/06/24 Current Medications Current Medications Medications (Trade) Dose Ordered Sig/Bonnie Route PRN Reason Start Time Stop Time Status Last Admin Lactated Ringer's 1,000 ml @ 125 mls/hr Q8H IV 09/21/24 22:30 Nalbuphine HCl (Nubain) 10 mg Q4HP PRN IM MODERATE PAIN (4-6 PAIN SCALE) 09/21/24 22:30 Nalbuphine HCl (Nubain) 10 mg Q4HP PRN IV MODERATE PAIN (4-6 PAIN SCALE) 09/21/24 22:30 Penicillin G Potassium [id number] units/Dextrose 50 ml @ 100 mls/hr Q4H IV 09/22/24 02:30 Witch Heaven (Tucks) 1 pad PRN PRN TOP PERINEAL AREA DISCOMFORT 09/21/24 22:30 Sodium Lauryl Sulfate (Phisoderm) 240 ml PRN PRN TOP PERINEAL AREA DISCOMFORT 09/21/24 22:30 Benzocaine (Dermoplast) 1 applic PRN PRN TOP PERINEAL AREA DISCOMFORT 09/21/24 22:30 Lidocaine HCl (Xylocaine) 40 ml ONCE PRN IJ PERINEAL AREA DISCOMFORT 09/21/24 22:30 Family & Social History Family/Social History Past Family/Social History: Mother- HTN, Diabetes Father- HTN, Diabetes Blood Type: O+ Rubella: immune RPR/VDRL: Negative GBS Status: Positive HBsAG: Negative Review of Systems Constitutional: No symptom reported Ears, Nose, & Throat: No symptom reported Eyes: No symptom reported Pulmonary/Respiratory: No symptom reported Cardiovascular: No symptom reported Gastrointestinal: No symptom reported Genitourinary: No symptom reported Musculoskeletal: No symptom reported Skin: Other (itching of palms, soles, shins, thighs and abdomen) Psychiatric: No symptom reported Endocrine: No symptom reported Hemotologic/Lymphatic: No symptom reported OB Admission Exam Physical Exam Vitals: VSS except one elevated BP, see chart Alk phosphate 285 on 09/20/24 Bile acid results pending HEENT: TMs Normal, Fontanelles Normal, Nasal Mucosa Normal, Eyes non-injected, Oropharynx Normal, PERRLA, Moist Membranes, EOMI Heart: Rhythm Normal Lungs: Clear Abdomen: Gravid Extremities: Normal Reflexes: Normal Pelvic Exam: 0/thick/-3 Membranes: Intact Heart Rate: 130's Accelerations: Accelerations Present Decelerations: No Decelerations Maintenance Helper Variability: Average (6-25) Contractions on Admission: < 5 Minutes Apart (q 2.5-5) Date/Time Contractions Began: pt unaware of UCs Duration: 60 sec Intensity: Mild OB Plan Plan Admitting Diagnosis: 19yo IUP@38.3wks Induction of labor for Cholestasis Category I EFM Intact membranes GBS positive Plan: Induction Induction Methd: Misoprostol protocol Other Plan: Admit to L&D Informed consent obtained Discussed risks, benefits, alternatives of IOL for Cholestasis with pt. Pt consents to IOL with cytotec. Continuous monitoring per order Routine labs ordered and Pre eclampsia labs ordered Pain mgmt PRN Start IV PCN when in active labor or ROM Frequent position changes in and out of bed encouraged Limit SVE unless necessary Intrauterine resuscitation PRN Anticipate CNM co-managing care with Dr. Martha Thomas consulted, agrees with POC Visit Coding OBGYN Date of Service: Sep 21, 2024 Billing Provider: KENDRICK PRADHAN CNM DIGITAL MEDIA ASSOCIATE Common Visit Codes: [id number] INP/OBS CARE (HIGH) FLORENCIO SEN STUDENTMDW Sep 21, 2024 23:41
[2024-09-22 00:03] LABS: Amphetamine Screen, Urine Neg (NEGATIVE); Barbiturate Scree,Urine Neg (NEGATIVE); Benzodiazephine Screen, Urine Neg (NEGATIVE); Cannabinoid Screen, Urine Neg (NEGATIVE); Cocaine Screen, Urine Neg (NEGATIVE); Opiate Scree,Urine Neg (NEGATIVE); Phencyclidine Screen, Urine Neg (NEGATIVE)
[2024-09-22] MEDS: URSODIOL 300 MG CAP PO SCH ×2 (00:06→11:37)
[2024-09-22] MEDS: PHISODERM TOP SOLN 240ML BTL TOP PRN (00:12)
[2024-09-22] MEDS: WITCH HAZEL-GLYCERIN PAD TOP PRN (00:13)
[2024-09-22] MEDS: DERMOPLAST 60ML BOTTLE TOP PRN (00:13)
[2024-09-22] MEDS: TERBUTALINE SULFATE 1 MG/ML 1ML VIAL SC ONE (00:47)
[2024-09-22] MEDS: miSOPROStol 50 MCG per PRE-CUT 1/2 TAB PO PRN (01:22)
[2024-09-22 01:26] LABS: Protein, Urine 18.2 mg/dL (1-14)
[2024-09-22 01:29] LABS: Creatinine, Urine 76.26 mg/dL (30.0-125.0); Urine Protein/Creatinine Ratio 0.24
[2024-09-22] MEDS ORDERED: PENICILLIN G POTASSIUM 2,500,000 UNITS in D5W 5% 50 ML IV SCH (02:30)
--- NOTE | 2024-09-22 02:34 | DVHPN2 ---
CNM Labor Progress Note Date and Time Seen Date Seen: Sep 22, 2024 Time Seen: 01:40 Subjective Subjective Comment Pt denies pain Objective Vital Signs VSS, see chart EFW 7 1/2 lbs on 09/20/24 Monitoring Method Monitoring Method: External Heart Rate Heart Rate Baseline: 135 Heart Rate Variability: Moderate Presence of FHR Accelerations: Yes Presence of FHR Decelerations: Yes (5min prolonged decel following 5min prolonged contraction) Comment on Trends or Patterns: maternal position changed, IV bolus given, O2 mask on, terbutaline SQ given Are all 5 Components of the FH: Yes Contractions Contractions Frequency: Other (prolonged contraction) Duration of Contraction: 80 Contractions Intensity: Strong (initially upon palpation) Contractions Resting Tone: Relaxed (after terbutaline SQ dose) Membranes Membranes: Intact Vaginal Exam Vag Exam Deferred: Yes Medications Medications - Pitocin: No Medications - Pain Medications: PRN Medication - Epidural: No Medication - Other s/p Cytotec PO dose at 0122 Lab Results Lab Results Current Medications Medications (Trade) Dose Ordered Sig/Bonnie Start Time Stop Time Status Last Admin Dose Admin Lactated Ringer's 1,000 ml @ 125 mls/hr Q8H 09/21/24 22:30 Nalbuphine HCl (Nubain) 10 mg Q4HP PRN 09/21/24 22:30 Nalbuphine HCl (Nubain) 10 mg Q4HP PRN 09/21/24 22:30 Penicillin G Potassium 50 ml @ 100 mls/hr ONCE ONCE 09/21/24 22:30 09/21/24 22:59 DC Penicillin G Potassium [id number] units/Dextrose 50 ml @ 100 mls/hr Q4H 09/22/24 02:30 Elen Collado (Tucks) 1 pad PRN PRN 09/21/24 22:30 09/22/24 00:13 1 PAD Sodium Lauryl Sulfate (Phisoderm) 240 ml PRN PRN 09/21/24 22:30 09/22/24 00:12 240 ML Benzocaine (Dermoplast) 1 applic PRN PRN 09/21/24 22:30 09/22/24 00:13 1 APPLIC Lidocaine HCl (Xylocaine) 40 ml ONCE PRN 09/21/24 22:30 Misoprostol (Cytotec) 50 mcg Q4HPRN PRN 09/21/24 23:45 09/22/24 01:22 50 MCG Ursodiol (Actigall) 300 mg BID 09/22/24 23:45 09/22/24 00:06 300 MG Laboratory Tests Test 09/22/24 00:25 09/21/24 22:35 09/21/24 22:31 Range/Units Urine Creatinine 76.26 30.0-125.0 mg/dL Urine Protein/Creatinine Ratio 0.24 Urine Total Protein 18.2 H 1-14 mg/dL White Blood Count 8.2 4.4-10.8 10^3/uL Red Blood Count 4.18 4.0-5.20 10^6/uL Hemoglobin 13.1 12.2-16.2 g/dL Hematocrit 37.4 36.0-46.0 % Mean Corpuscular Volume 89.3 80.0-100.0 fL Mean Corpuscular Hemoglobin 31.4 28.0-32.0 pg Mean Corpuscular Hemoglobin Concent 35.1 32.0-36.0 g/dL Red Cell Distribution Width 14.0 11.8-14.3 % Platelet Count 164 140-450 10^3/uL Mean Platelet Volume 10.7 6.9-10.8 fL Neutrophils (%) (Auto) 60.9 37.0-80.0 % Lymphocytes (%) (Auto) 31.8 10.0-50.0 % Monocytes (%) (Auto) 5.9 0.0-12.0 % Eosinophils (%) (Auto) 1.0 0.0-7.0 % Basophils (%) (Auto) 0.4 0.0-2.0 % Neutrophils # (Auto) 5.0 1.6-8.6 10 ^3/uL Lymphocytes # (Auto) 2.6 0.4-5.4 10 ^3/uL Monocytes # (Auto) 0.5 0-1.3 10 ^3/uL Eosinophils # (Auto) 0.1 0-0.8 10 ^3/uL Basophils # (Auto) 0 0-0.2 10 ^3/uL Nucleated Red Blood Cells 0.0 % Prothrombin Time 9.8 9.3-11.8 sec Prothrombin Time INR 0.92 0.9-1.15 Activated Partial Thromboplast Time 28.2 24.5-34.5 SEC Sodium Level 138 136-145 mmol/L Potassium Level 3.9 3.5-5.1 mmol/L Chloride Level 106 98-107 mmol/L Carbon Dioxide Level 21 20-31 mmol/L Anion Gap 11 5-15 Blood Urea Nitrogen 11 9-23 mg/dL Creatinine 1.01 0.550-1.02 mg/dL Glomerular Filtration Rate Calc 82 >90 mL/min BUN/Creatinine Ratio 10.9 10.0-20.0 Serum Glucose 66 L 74-106 mg/dL Uric Acid 5.2 3.1-7.8 mg/dL Calcium Level 10.0 8.7-10.4 mg/dL Total Bilirubin 0.7 0.2-1.0 mg/dL Aspartate Amino Transferase (AST) 22 13-40 U/L Alanine Aminotransferase (ALT) 10 7-40 U/L Alkaline Phosphatase 284 H 46-116 U/L Total Protein 6.9 5.7-8.2 g/dL Albumin 4.2 3.2-4.8 g/dL Treponema pallidum Antibody Non-reactive Negative Urine Color Light-yellow Yellow Urine Clarity Turbid H Clear Urine pH 5.5 5.0-9.0 Urine Specific [place] 1.012 1.001-1.035 Urine Protein Negative Negative Urine Ketones Negative Negative Urine Blood Negative Negative /uL Urine Nitrite Negative Negative Urine Bilirubin Negative Negative Urine Urobilinogen Normal Negative mg/dL Urine Leukocyte Esterase 1+ Negative /uL Urine RBC 1 0 - 4 /hpf Urine Microscopic WBC 7 H 0-5 /HPF Urine Squamous Epithelial Cells Mod <5 /hpf Urine Bacteria Few H None Seen /hpf Urine Glucose Normal Normal mg/dL Urine Opiates Screen Neg NEGATIVE Urine Fentanyl Screen Neg NEGATIVE Urine Barbiturates Screen Neg NEGATIVE Urine Phencyclidine Screen Neg NEGATIVE Urine Amphetamines Screen Neg NEGATIVE Urine Benzodiazepines Screen Neg NEGATIVE Urine Cocaine Screen Neg NEGATIVE Urine Cannabinoids Screen Neg NEGATIVE Assessment Assessment A: 19yo IUP@38.4wks Induction of Labor for Cholestasis Category II EFM Intact Membranes GBS positive Plan Plan P: Discussed starting Cervidil at 0630. Pt agrees with POC. Start IV PCN for GBS treatment in active labor or ROM Continuous monitoring Pain mgmt PRN Frequent position changes in and out of bed encouraged Limit SVE unless necessary Intrauterine resuscitation PRN Anticipate CNM is co-managing care with Dr. Thomas. Plan discussed with: Patient, Other (significant other) Visit Coding OBGYN Date of Service: Sep 22, 2024 Billing Provider: KENDRICK PRADHAN CNM [employer] Common Visit Codes: [id number] INP/OBS CARE(HIGH) FLORENCIO SEN STUDENTMDW Sep 22, 2024 02:33
[2024-09-22] MEDS: TERBUTALINE SULFATE 1 MG/ML 1ML VIAL SC PRN (05:59)
[2024-09-22] MEDS: DINOPROSTONE 10MG VAG SUPP PV ONE (06:30)
[2024-09-22] MEDS: LACTATED RINGER'S 1,000 ML IV SCH (08:59)
[2024-09-22] MEDS: PENICILLIN G POT 5MIL/D5 50ML 50 ML IV ONE (13:13)
[2024-09-22] MEDS: ePHEDrine SULFATE 50 MG/ML AMP IV ONE (13:30)
[2024-09-22] MEDS: NALOXONE HCL 0.4 MG/ML VIAL IV ONE (13:30)
--- NOTE | 2024-09-22 13:43 | DVHPN ---
DATE: 09/22/2024 SUBJECTIVE: The patient desires an epidural. OBJECTIVE: VITAL SIGNS: Stable, afebrile. PELVIC: 3.5, 80%, -2. NST category 1. IMPRESSION: Induction of labor for cholestasis. PLAN: Start Pitocin. We will obtain epidural and continue with Pitocin. Toña Thomas DO MZ/FELY TID: [id number] RECEIPT: [id number]
[2024-09-22] MEDS: fentaNYL CITRATE 100 MCG/2 ML VL IV ONE (14:12)
[2024-09-22] MEDS: ROPIVACAINE HCL 200 ML ONE (14:14)
[2024-09-22] MEDS ORDERED: diphenhdrAMINE HCL 50 MG/1 ML VL IV PRN ×2 (14:30→20:15)
--- NOTE | 2024-09-22 14:34 | EPIDURAL ---
Anesthesia Procedural Note - Epidural Informed consent obtained?: Yes Medication Administered: Fentanyl 100 mcg Spinal level of insertion: L4-L5 Test dose of lidocaine & Epine: Negative Infusion started: Yes Start time: 13:45 End time: 14:15 Procedure description Procedure description: Called for labor analgesia. Patient is here for induction at term, requesting epidural. Chart reviewed, history taken and patient examined at 1348 (BP 121/76 HR 83 spO2 99). Informed consent for CSE obtained. Sitting position, sterile prep and drape. Time out done at 1351. L4-5 space infiltrated with 1% lido. Epidural needle placed with QUETA at 6cm. 25G spinal needle +clear CSF. 20 mcg fentanyl given IT at 1359 (BP 126/73 HR 93 spO2 99). Epidural catheter secured at 12cm. Aspiration and test dose (3cc 1.5%lido with epi) negative at 1401 (BP 131/77 HR 80 spO2 98). 80 mcg fentanyl given via epidural catheter at 1402 (BP 129/69 HR 73 spO2 99). Patient reports good pain relief. 0.2% ropivacaine infusion started at 1413 (BP 118/67 HR 85 spO2 98). Will follow as needed. SHARITA ADAMS MD Sep 22, 2024 14:34
[2024-09-22] MEDS: LACT. RINGERS/OXYTOCIN 20UNITS 1,000 ML IV SCH (17:05)
[2024-09-22] MEDS: PENICILLIN G POTASSIUM 2,500,000 UNITS in D5W 5% 50 ML IV SCH (17:12)
[2024-09-22] MEDS: LIDOCAINE HCL 2 %PF INJ 10ML AMP IJ ONE (17:33)
[2024-09-22] MEDS ORDERED: fentaNYL CITRATE 100 MCG/2 ML VL ONE (17:37)
[2024-09-22] MEDS ORDERED: MORPHINE SULF PF 5 MG/10 ML VIAL ONE (17:37)
[2024-09-22] MEDS ORDERED: ePHEDrine SULFATE 50 MG/ML AMP ONE (17:38)
[2024-09-22] MEDS ORDERED: oxyTOCIN 10 UNIT/ML 10ML VIAL ONE (17:38)
[2024-09-22] MEDS ORDERED: KETOROLAC TROMETH 30 MG/ML 1ML VIAL ONE (17:38)
[2024-09-22] MEDS ORDERED: GLYCOPYRROLATE 0.2 MG/ML 1ML VIAL ONE (17:38)
[2024-09-22] MEDS ORDERED: ONDANSETRON HCL 4 MG/2 ML VIAL ONE ×2 (17:38→18:09)
[2024-09-22] MEDS ORDERED: LIDOCAINE 2% (LOCAL ANESTH.) PF 5ml SDV ONE (18:22)
[2024-09-22] MEDS: ceFAZolin 2 GM/D5W50ml 50 ML IV ONE (18:26)
[2024-09-22] MEDS ORDERED: MIDAZOLAM HCL 2MG/2ML 2ml VIAL (1mg/ml) ONE (18:30)
[2024-09-22] MEDS ORDERED: PROPOFOL 10 MG/ML 20 ML IV ONE ×2 (18:35→18:56)
[2024-09-22] MEDS: ceFAZolin 1GM/50ML 50 ML IV SCH ×2 (18:45→23:45)
[2024-09-22] MEDS ORDERED: GUM (CHEWING) 1 GUM CHEW CHEW ONE ×2 (18:45→23:45)
[2024-09-22] MEDS ORDERED: ONDANSETRON HCL 4 MG/2 ML VIAL IV PRN ×3 (18:45→23:45)
[2024-09-22] MEDS: LACT. RINGERS/OXYTOCIN 20UNITS 1,000 ML IV ONE (18:45)
--- NOTE | 2024-09-22 19:05 | DVHHP ---
ADMIT DATE: 09/22/2024 CHIEF COMPLAINT: Nonreassuring heart tracing, repetitive prolonged deceleration. HISTORY OF PRESENT ILLNESS: The patient is a 19-year-old 1, para 0 with EDC 10/02/2024, estimated gestational age of 38+ weeks, admitted for induction of labor secondary to cholestasis. The patient received 1 Cytotec and started having decelerations. Multiple prolonged deceleration. The patient is unable to tolerate Pitocin due to these decelerations. Subsequently, the patient was taken for primary low transverse section. PAST MEDICAL HISTORY: Cholelithiasis diagnosed by Dr. Damico. PAST SURGICAL HISTORY: None. SOCIAL HISTORY: None. FAMILY HISTORY: None. OBSTETRIC AND GYNECOLOGIC HISTORY: GBS positive. Rubella immune. REVIEW OF SYSTEMS: Consistent with HPI. PHYSICAL EXAMINATION: VITAL SIGNS: Stable, afebrile. HEENT: Within normal limits. CARDIOVASCULAR: Regular rate and rhythm. LUNGS: Clear to auscultation. BREASTS: Symmetrical. No masses. ABDOMEN: Gravid. Positive heart. PELVIC: 5 cm, 90%, -1. EXTREMITIES: No clubbing, cyanosis or edema. IMPRESSION: * Intrauterine at 38+ weeks, induction of labor for cholestasis. * Nonreassuring heart tracing, fetus at risk. * Morbid obesity. * GBS positive. PLAN: Primary low transverse section. Informed consent obtained. Risks, complication of including bleeding, infection, PE, DVT discussed with the patient. Options reviewed. All questions answered. The patient fully understands. She wishes to proceed with planned procedure. Toña Thomas DO MZ/JAVIER TID: [id number] RECEIPT: [id number]
[2024-09-22] MEDS: HYDROmorphone HCL 2 MG/ML VL/or syr ONE (19:17)
[2024-09-22] MEDS: CARBOPROST TROMETHAMINE 250 MCG/1ML VIAL IM ONE (19:30)
--- NOTE | 2024-09-22 19:41 | DVHOP2 ---
Operative Report DATE OF OPERATION: 09/22/24 PREOPERATIVE DIAGNOSES: iup at 38wks iol for cholestasis of preg POSTOPERATIVE DIAGNOSES: alessandro,e,non reassuring fht-fetus at risk,op SURGEON: Toña Thomas D.O./nancy ANESTHESIOLOGIST: mavis TYPE OF ANESTHESIA : spinal CONSENT: The patient was informed of the risks and benefits of the procedure. The patient was informed of the risks and benefits of the procedure. These include but are not limited to , complications of anesthesia, postoperative infection, incomplete relief of symptoms, recurrence of symptoms, damage to blood vessels, nerves and tendons, deep venous thrombosis, pulmonary embolism and possible need for repeat surgery in the future. FINDINGS: Baby [b] with Apgars of [8] and [9]. Grossly normal appearing tubes and ovaries.op,cord blood gases obtained PROCEDURES: Primary low transverse section. PROCEDURE IN DETAIL: The patient was taken to the operating room. She already had an epidural in place. She was then placed in supine position with a leftward tilt. A Pfannenstiel skin incision was made 2 cm above the symphysis pubis. This incision was carried to the underlying layer of fascia. The fascia was nicked in the midline. The incision was extended laterally. The superior aspect of the fascial incision was grasped and elevated. The same procedure was done to the inferior aspect of the fascial incision. The rectus muscles were then in the midline. Peritoneum was identified and entered. Peritoneal incision was extended superiorly and inferiorly with good visualization of the bladder. Bladder blade was inserted. Vesicouterine peritoneum was identified and entered. Lower uterine segment was incised in a transverse fashion. The infant was delivered from vertex presentation. Infant was baby [b] with Apgars [8] and [9]. Placenta was then removed manually. Uterus was exteriorized and cleared of all clots and debris. The incision was repaired using 0 Vicryl in a double-layered fashion. No bleeding was noted. Uterus was then returned to the abdomen. The gutters were cleared off all clots and debris. Peritoneum was closed using 0 Vicryl, fascia was closed using 0 Maxon, and skin was closed using wilber. The patient tolerated the procedure well. She was taken to the recovery room in stable condition. ESTIMATED BLOOD LOSS: Estimated blood loss was noted to be 800 mL. Visit Coding OBN Date of Service: Sep 22, 2024 Billing Provider: TOÑA THOMAS DO NET SOFTWARE DEVELOPER Common Visit Codes: [id number] INP/OBS CARE(HIGH) NET SOFTWARE DEVELOPER Consultation Codes: [id number] CONSULT <55MIN NET SOFTWARE DEVELOPER Procedure Codes: [id number] DELIVERY ONLY TOÑA THOMAS DO Sep 22, 2024 19:41
--- NOTE | 2024-09-22 19:43 | POSTOP ---
Post-Operative Note Post-Operative Note Preop Diagnosis iol for cholestasis of preg,38wks Postop Diagnosis: same,non reassurimng fht -fetus at risk,op Operation performed pltcs Specimen baby boy,apgars 8-9.op Anesthesia: Regional Anesthesiologist: mavis Blood Loss(fluid mgmt) 800ml Surgeon Leonardo Thomas Mold Insert Changer nancy Implant na Complications & Mgmt na Date 09/22/24 Time 19:41 Visit Coding OBGYN Date of Service: Sep 22, 2024 Billing Provider: LEONARDO THOMAS DO BINDER STRIPPER MACHINE Common Visit Codes: 25372-WXK/OBS DISCH DAY <30MIN BINDER STRIPPER MACHINE Consultation Codes: [id number]/[id number] INPATIENT CONSULT (MOD) LEONARDO THOMAS DO Sep 22, 2024 19:43
[2024-09-22] MEDS ORDERED: IBUP-1456 PO (19:50)
[2024-09-22] MEDS ORDERED: HYDR-4072 PO (19:50)
[2024-09-22] MEDS ORDERED: DOCU-94 PO (19:50)
[2024-09-22 20:04] VITALS: O2SAT 94
[2024-09-22] MEDS ORDERED: HYDROmorphone HCL 2 MG/ML VL/or syr IV PRN (20:15)
[2024-09-22] MEDS: NALBUPHINE HCL 10 MG/1ml INJECTION SUBCUT ONE (20:15)
[2024-09-22] MEDS ORDERED: ACETAMINOPHEN IV 1000 MG/100ML (10MG/ML) IV PRN ×2 (20:15→22:00)
[2024-09-22] MEDS ORDERED: DexAMETHasone SOD PHOS 10MG/1ML VIAL INJ IV PRN (20:15)
[2024-09-22] MEDS ORDERED: NALOXONE HCL 0.4 MG/ML VIAL IV PRN (20:15)
[2024-09-22] MEDS ORDERED: ONDANSETRON HCL 4 MG/2 ML VIAL IV ONE (20:15)
[2024-09-22] MEDS ORDERED: MEPERIDINE HCL (25 MG/ML) 1ML VIAL IV PRN (20:15)
[2024-09-22] MEDS: HYDROmorphone HCL 2 MG/ML VL/or syr IV PRN (20:16)
[2024-09-22] MEDS: hydrALAZINE HCL 20 MG/ML VL ONE (20:25)
[2024-09-22 20:50] VITALS: BP 155/97; PULSE 103; RESP 20; TEMP 98.5; O2SAT 96
[2024-09-22] MEDS ORDERED: hydrALAZINE HCL 20 MG/ML VL IV PRN (21:30)
[2024-09-22 22:00] VITALS: BP 151/92; PULSE 107; RESP 18; TEMP 98.5; O2SAT 96
[2024-09-22] MEDS ORDERED: FAMOTIDINE (10MG/ML) 2ML VL IV SCH (22:00)
[2024-09-22 22:50] VITALS: BP 139/70; PULSE 110; RESP 18; TEMP 98.4; O2SAT 97
[2024-09-22 23:11] LABS: Basophils # (auto) 0.1 10 ^3/uL (0-0.2); Basophils % (auto) 0.4 % (0.0-2.0); Eosinophils # (auto) 0 10 ^3/uL (0-0.8); Eosinophils % (auto) 0.2 % (0.0-7.0); Hematocrit 35.8 % (36.0-46.0); Hemoglobin 11.9 g/dL (12.2-16.2); Lymphocytes # (auto) 1.6 10 ^3/uL (0.4-5.4); Lymphocytes % (auto) 12.1 % (10.0-50.0); Mean Corpuscular Hemoglobin 29.4 pg (28.0-32.0); Mean Corpuscular Hgb Conc. 33.2 g/dL (32.0-36.0); Mean Corpuscular Volume 88.8 fL (80.0-100.0); Monocytes # (auto) 0.6 10 ^3/uL (0-1.3); Monocytes % (auto) 4.5 % (0.0-12.0); Neutrophils # (auto) 11.2 10 ^3/uL (1.6-8.6); Neutrophils % (auto) 82.8 % (37.0-80.0); Platelet Count (auto) 153 10^3/uL (140-450); Red Blood Cells 4.04 10^6/uL (4.0-5.20); Red Cell Distribution Width 14.2 % (11.8-14.3); White Blood Cell 13.6 10^3/uL (4.4-10.8)
[2024-09-22] MEDS ORDERED: ePHEDrine SULFATE 50 MG/ML AMP IV PRN (23:45)
[2024-09-22] MEDS ORDERED: MORPHINE SULFATE 4 MG/ML SYR/VIAL IV PRN (23:45)
[2024-09-23] VITALS (16 sets, daily range): BP systolic 118–145; BP diastolic 57–89; PULSE 91–115; RESP 15–20; TEMP 98.3–98.8; O2SAT 96–100
[2024-09-23] MEDS ORDERED: ACETAMINOPHEN IV 1000 MG/100ML (10MG/ML) IV PRN
[2024-09-23] MEDS: LACT. RINGERS/OXYTOCIN 20UNITS 500 ML IV ONE ×2 (02:15→02:45)
[2024-09-23 06:07] LABS: Basophils # (auto) 0 10 ^3/uL (0-0.2); Basophils % (auto) 0.3 % (0.0-2.0); Eosinophils # (auto) 0 10 ^3/uL (0-0.8); Eosinophils % (auto) 0.1 % (0.0-7.0); Hematocrit 32.1 % (36.0-46.0); Lymphocytes # (auto) 1.6 10 ^3/uL (0.4-5.4); Lymphocytes % (auto) 12.6 % (10.0-50.0); Mean Corpuscular Hemoglobin 30.8 pg (28.0-32.0); Mean Corpuscular Hgb Conc. 34.3 g/dL (32.0-36.0); Mean Corpuscular Volume 89.8 fL (80.0-100.0); Monocytes # (auto) 0.9 10 ^3/uL (0-1.3); Monocytes % (auto) 7.1 % (0.0-12.0); Neutrophils # (auto) 9.9 10 ^3/uL (1.6-8.6); Neutrophils % (auto) 79.9 % (37.0-80.0); Platelet Count (auto) 132 10^3/uL (140-450); Red Blood Cells 3.57 10^6/uL (4.0-5.20); Red Cell Distribution Width 14.5 % (11.8-14.3); White Blood Cell 12.4 10^3/uL (4.4-10.8)
--- NOTE | 2024-09-23 09:32 | DVHPN2 ---
Progress Note Date Seen: Sep 23, 2024 Subjective S: Lochia minimal. Moving well in bed, Almeida catheter in place Pain relieved with analgesics. Not passing flatus and no BM yet. w/o problem vital signs Vital Sign Date Time Temp Pulse Resp B/P (MAP) Pulse Ox O2 Delivery O2 Flow Rate FiO2 09/23/24 05:00 98.6 104 18 125/83 (97) 96 98.6 09/22/24 20:50 Room Air 09/22/24 20:42 0 98 Total Intake and Output 09/22/24 09/22/24 09/23/24 15:00 23:00 07:00 Output Total 525 ml 700 ml Balance -525 ml -700 ml medications Current Medications Medications Dose Ordered Sig/Bonnie Route Start Time Stop Time Status Last Admin Dose Admin Lactated Ringer's 1,000 ml @ 125 mls/hr Q8H IV 09/21/24 22:30 09/22/24 15:00 125 MLS/HR Nalbuphine HCl 10 mg Q4HP PRN IM 09/21/24 22:30 Nalbuphine HCl 10 mg Q4HP PRN IV 09/21/24 22:30 [place] 1 pad PRN PRN TOP 09/21/24 22:30 09/22/24 00:13 1 PAD Sodium Lauryl Sulfate 240 ml PRN PRN TOP 09/21/24 22:30 09/22/24 00:12 240 ML Benzocaine 1 applic PRN PRN TOP 09/21/24 22:30 09/22/24 00:13 1 APPLIC Lidocaine HCl 40 ml ONCE PRN IJ 09/21/24 22:30 Misoprostol 50 mcg Q4HPRN PRN PO 09/21/24 23:45 09/22/24 01:22 50 MCG Terbutaline Sulfate 0.25 mg ONCE PRN SC 09/22/24 01:43 09/22/24 05:59 0.25 MG Ursodiol 300 mg BID PO 09/22/24 11:00 09/22/24 11:37 300 MG Oxytocin 1,000 ml @ 6 ml/hr Q24H IV 09/22/24 13:30 09/22/24 17:05 6 ML/HR Famotidine 20 mg Q12HR IV 09/22/24 22:00 Diphenhydramine HCl 25 mg Q4HP PRN IV 09/22/24 14:30 Ondansetron HCl 4 mg Q4HP PRN IV 09/22/24 18:45 Cefazolin Sodium 50 ml @ 100 mls/hr Q8H IV 09/22/24 18:45 09/23/24 11:14 Diphenhydramine HCl 25 mg Q4HP PRN IV 09/22/24 20:15 Ondansetron HCl 4 mg Q4HP PRN IV 09/22/24 20:15 Ketorolac Tromethamine 30 mg Q6HP PRN IV 09/22/24 20:15 09/27/24 20:14 Hydralazine HCl 5 mg Q20MP PRN IV 09/22/24 21:30 Acetaminophen 1,000 mg Q8HPRN PRN IV 09/22/24 22:00 09/23/24 21:59 Morphine Sulfate 2 mg Q4HP PRN IV 09/22/24 23:45 Ondansetron HCl 4 mg Q4HP PRN IV 09/22/24 23:45 Cefazolin Sodium 50 ml @ 100 mls/hr Q8H IV 09/22/24 23:45 09/23/24 16:14 09/22/24 23:45 100 MLS/HR Ephedrine Sulfate 10 mg [id number] PRN IV 09/22/24 23:45 09/23/24 23:44 Acetaminophen 1,000 mg [id number] PRN IV 09/23/24 00:00 09/23/24 23:59 laboratory and microbiology Laboratory Tests 09/23/24 05:45 09/21/24 22:35 Test 09/21/24 22:35 Range/Units Serum Glucose 66 L 74-106 mg/dL Objective O: A&O x3 NAD. Afebrile, VSS Chest: heart and lung sounds normal. Breasts: Nipples intact w/o cracks or soreness Abdomen: normal BS, soft, non-tender, no rebound or guarding, fundus firm @ U- 1, Lower abdominal Incision site with Sylke dressing, same clean, dry and intact. No edema, erythema or induration noted. Extremities: no edema or tenderness Lochia - minimal Assessment/Plan 20yo now Post operative & ppd # s/p Primary Section doing well. Anemia Blood Type: Rh: Positive / Negative Breast feeding / and Formula feeding Rubella Immune Pain control with oral medications Bowel regimen: Increase fluid intake and fiber in diet, Laxative PRN PP BCM Plan: Undecided Plan discussed with: Patient, Other (significant other) Visit Coding OBGYN Date of Service: Sep 23, 2024 Billing Provider: NORMA COON CNM WATCHER [employer] Common Visit Codes: [id number] INP/OBS CARE(HIGH) NORMA COON CNM Sep 23, 2024 09:32
[2024-09-23] MEDS: KETOROLAC TROMETH 30 MG/ML 1ML VIAL IV PRN (10:47)
[2024-09-23] MEDS: SIMETHICONE 80 MG CHEWABLE TABLET PO SCH (17:41)
[2024-09-23] MEDS: IBUPROFEN 800 MG TAB PO PRN (17:50)
[2024-09-23] MEDS: DOCUSATE SOD 100 MG CAP PO SCH (22:03)
[2024-09-23] MEDS: HYDROcodone-ACET 5/325MG TAB PO PRN (23:45)
--- NOTE | 2024-09-24 02:40 | DVHPN2 ---
Progress Note Date Seen: Sep 24, 2024 Subjective S: Lochia minimal. Regular diet well tolerated. Ambulating and voiding well w/o feeling dizzy or lightheaded. Pain relieved with analgesics. Passing flatus but no BM yet. and formula feeding w/o problem vital signs Vital Sign Date Time Temp Pulse Resp B/P (MAP) Pulse Ox O2 Delivery O2 Flow Rate FiO2 09/23/24 23:00 96 15 118/65 (82) 97 09/23/24 19:00 Room Air 09/23/24 14:46 98.3 98.3 09/22/24 20:42 0 98 Total Intake and Output 09/23/24 09/23/24 09/24/24 15:00 23:00 07:00 Output Total 700 ml 1300 ml Balance -700 ml -1300 ml medications Current Medications Medications Dose Ordered Sig/Bonnie Route Start Time Stop Time Status Last Admin Dose Admin Elen Collado 1 pad PRN PRN TOP 09/21/24 22:30 09/22/24 00:13 1 PAD Sodium Lauryl Sulfate 240 ml PRN PRN TOP 09/21/24 22:30 09/22/24 00:12 240 ML Benzocaine 1 applic PRN PRN TOP 09/21/24 22:30 09/22/24 00:13 1 APPLIC Hydralazine HCl 5 mg Q20MP PRN IV 09/22/24 21:30 Docusate Sodium 100 mg Q12HR PO 09/23/24 22:00 09/23/24 22:03 100 MG Dimethicone 80 mg QID PO 09/23/24 18:00 09/23/24 22:03 80 MG Ibuprofen 800 mg Q8HP PRN PO 09/23/24 14:00 09/23/24 17:50 800 MG Acetaminophen/ Hydrocodone Bitart 1 tab Q4HPRN PRN PO 09/23/24 14:00 Acetaminophen/ Hydrocodone Bitart 2 tab Q4HPRN PRN PO 09/23/24 14:00 09/23/24 23:45 2 TAB laboratory and microbiology Laboratory Tests 09/23/24 05:45 09/21/24 22:35 Test 09/21/24 22:35 Range/Units Serum Glucose 66 L 74-106 mg/dL Objective O: A&O x3 NAD. Afebrile, VSS Chest: heart and lung sounds normal. Breasts: Nipples intact w/o cracks or soreness Abdomen: normal BS, soft, non-tender, no rebound or guarding, fundus firm @ U- 1, Lower abdominal Incision site with Sylke on, open to fresh air, same clean, dry and intact. No edema, erythema or induration Extremities: no edema or tenderness Lochia - minimal Assessment/Plan 19 yo now Post operative & ppd #2 s/p Primary Section doing well. Blood Type: O Rh: Positive Breast feeding and Formula feeding Rubella Immune Pain control with oral medications Bowel regimen: Increase fluid intake and fiber in diet, Laxative PRN PP BCM Plan: undecided Plan discussed with: Patient, Spouse, Other (significant other) Visit Coding OBGYN Date of Service: Sep 24, 2024 Billing Provider: NORMA COON CNM CITIZENSHIP TEACHER Common Visit Codes: [id number] INP/OBS CARE(MOD) NORMA COON CNM Sep 24, 2024 02:40
[2024-09-24 07:00] VITALS: BP 138/82; PULSE 84; RESP 18; O2SAT 99
[2024-09-24 10:47] VITALS: BP 138/86; PULSE 85; RESP 17; TEMP 98; O2SAT 97
--- NOTE | 2024-09-24 12:20 | DVHDS2 ---
Discharge Summary Date of Admission Sep 21, 2024 at 22:08 Date of Discharge: Sep 24, 2024 Admitting Diagnosis Cholestasis of , IUP 38+ weeks Labs/Diagnostic Data: Laboratory Results Test 09/23/24 05:45 09/22/24 02:26 09/22/24 00:25 09/21/24 22:35 White Blood Count 12.4 10^3/uL (4.4-10.8) Red Blood Count 3.57 10^6/uL (4.0-5.20) Hemoglobin 11.0 g/dL (12.2-16.2) Hematocrit 32.1 % (36.0-46.0) Mean Corpuscular Volume 89.8 fL (80.0-100.0) Mean Corpuscular Hemoglobin 30.8 pg (28.0-32.0) Mean Corpuscular Hemoglobin Concent 34.3 g/dL (32.0-36.0) Red Cell Distribution Width 14.5 % (11.8-14.3) Platelet Count 132 10^3/uL (140-450) Mean Platelet Volume 10.5 fL (6.9-10.8) Neutrophils (%) (Auto) 79.9 % (37.0-80.0) Lymphocytes (%) (Auto) 12.6 % (10.0-50.0) Monocytes (%) (Auto) 7.1 % (0.0-12.0) Eosinophils (%) (Auto) 0.1 % (0.0-7.0) Basophils (%) (Auto) 0.3 % (0.0-2.0) Neutrophils # (Auto) 9.9 10 ^3/uL (1.6-8.6) Lymphocytes # (Auto) 1.6 10 ^3/uL (0.4-5.4) Monocytes # (Auto) 0.9 10 ^3/uL (0-1.3) Eosinophils # (Auto) 0 10 ^3/uL (0-0.8) Basophils # (Auto) 0 10 ^3/uL (0-0.2) Nucleated Red Blood Cells 0.0 % POC Glucose 79 mg/dl (70-106) Urine Creatinine 76.26 mg/dL (30.0-125.0) Urine Protein/Creatinine Ratio 0.24 Urine Total Protein 18.2 mg/dL (1-14) Prothrombin Time 9.8 sec (9.3-11.8) Prothrombin Time INR 0.92 (0.9-1.15) Activated Partial Thromboplast Time 28.2 SEC (24.5-34.5) Sodium Level 138 mmol/L (136-145) Potassium Level 3.9 mmol/L (3.5-5.1) Chloride Level 106 mmol/L (98-107) Carbon Dioxide Level 21 mmol/L (20-31) Anion Gap 11 (5-15) Blood Urea Nitrogen 11 mg/dL (9-23) Creatinine 1.01 mg/dL (0.550-1.02) Glomerular Filtration Rate Calc 82 mL/min (>90) BUN/Creatinine Ratio 10.9 (10.0-20.0) Serum Glucose 66 mg/dL (74-106) Uric Acid 5.2 mg/dL (3.1-7.8) Calcium Level 10.0 mg/dL (8.7-10.4) Total Bilirubin 0.7 mg/dL (0.2-1.0) Aspartate Amino Transferase (AST) 22 U/L (13-40) Alanine Aminotransferase (ALT) 10 U/L (7-40) Alkaline Phosphatase 284 U/L (46-116) Total Protein 6.9 g/dL (5.7-8.2) Albumin 4.2 g/dL (3.2-4.8) Treponema pallidum Antibody Non-reactive (Negative) Test 09/21/24 22:31 Urine Color Light-yellow (Yellow) Urine Clarity Turbid (Clear) Urine pH 5.5 (5.0-9.0) Urine Specific [place] 1.012 (1.001-1.035) Urine Protein Negative (Negative) Urine Ketones Negative (Negative) Urine Blood Negative /uL (Negative) Urine Nitrite Negative (Negative) Urine Bilirubin Negative (Negative) Urine Urobilinogen Normal mg/dL (Negative) Urine Leukocyte Esterase 1+ /uL (Negative) Urine RBC 1 /hpf (0 - 4) Urine Microscopic WBC 7 /HPF (0-5) Urine Squamous Epithelial Cells Mod /hpf (<5) Urine Bacteria Few /hpf (None Seen) Urine Glucose Normal mg/dL (Normal) Urine Opiates Screen Neg (NEGATIVE) Urine Fentanyl Screen Neg (NEGATIVE) Urine Barbiturates Screen Neg (NEGATIVE) Urine Phencyclidine Screen Neg (NEGATIVE) Urine Amphetamines Screen Neg (NEGATIVE) Urine Benzodiazepines Screen Neg (NEGATIVE) Urine Cocaine Screen Neg (NEGATIVE) Urine Cannabinoids Screen Neg (NEGATIVE) Other Laboratory Tests 09/23/24 05:45 09/21/24 22:35 Brief Hx & Hospital Course: Categ 2 FHR in early labor, remote from delivery Taken for urgent 1' C/Section Normal PP course Normal Bowel/Bladder function, pain controlled. H/H stable Stable for D/C on POD2 Condition at Discharge: Stable Final Diagnosis/Problems List Failed induciton of labor, NRFHR pattern intolerance to labor, s/p Primary C/Section NRFHR Discharge Disposition: Home Discharge Instruct/Medications Diet: Regular Activity: No Restrictions, As Tolerated Activity comment: Pelvic rest x 6 wk Follow Up/Referral: [address] Farrell Medications: eRx NORCO and Ibuprofen Discharge Statement: "Patient was advised to return to the ER or call 911 if any headaches, dizziness, shortness of breath, chest pain, abdominal pain, bleeding, fevers, or worsening of medical condition. Patient was counseled about treatment plan, medications, possible side effects, patientverbalized understanding. All questions were answered to the best of my ability. This discharge took greater then 30 minutes in planning, reviewing documentation, counseling the patient, and discussing with other team members." ASSESSMENT ASSESSMENT Assessment s/p Primary C/Section NRFHR Visit Coding OBGYN Date of Service: Sep 24, 2024 Billing Provider: JOEY FARRELL DO BULLDOZER OPERATOR Common Visit Codes: [id number] DISCH DAY >30MIN JOEY FARRELL DO Sep 24, 2024 12:20
[2024-09-24 14:54] VITALS: BP 129/66; PULSE 92; RESP 16; TEMP 98; O2SAT 97
[2024-09-24] MEDS: HYDROcodone-ACET 5/325MG TAB PO PRN (16:34)
[2024-09-24 19:00] VITALS: BP 134/80; PULSE 97; RESP 18; TEMP 97.7; O2SAT 98
== END 2024-09-24 20:54 | disposition home or self-care (01) | DRG 540 ==
LOC: LDRP 22:08
PROVIDERS: ADMIT Nurse Practitioner Women's Health; ATTEND Nurse Practitioner Women's Health
PROC: 10D00Z1 Extraction of Products of Conception, Low, Open Approach (ICD-10-PCS; principal; 2024-09-22 18:57)
DX: O26.643 Intrahepatic cholestasis of pregnancy, third trimester (principal); O61.9 Failed induction of labor, unspecified; D64.9 Anemia, unspecified; O99.214 Obesity complicating childbirth; O99.52 Diseases of the respiratory system complicating childbirth; O76 Abnormality in fetal heart rate and rhythm complicating labor and delivery; O99.824 Streptococcus B carrier state complicating childbirth; K80.20 Calculus of gallbladder without cholecystitis without obstruction; J45.909 Unspecified asthma, uncomplicated; O90.81 Anemia of the puerperium; E66.01 Morbid (severe) obesity due to excess calories; Z37.0 Single live birth; Z3A.38 38 weeks gestation of pregnancy; Z79.2 Long term (current) use of antibiotics; Z79.899 Other long term (current) drug therapy
CPT/HCPCS: 36415; 62282; 80053; 80307; 81001; 82570; 82962; 84156; 84550; 85025; 85610; 85730; 86780; 86850; 86900; 86901; 94760; 96360; 96361; 96366; G0378; J0131; J1885; J2003; J2250; J2405; J2540; J2590; J2704; J7060